=== PATIENT | female | born 1970 | race African-American/Black ===

== ENCOUNTER 2016-10-06 08:12 | Emergency (ER) | payer OTHER ==
[2016-10-06 08:07] LABS: INFLUENZA A NEG (NEG); INFLUENZA B NEG (NEG)
[~2016-10-06 08:12] MED LIST: DIFLUCAN PO; FLAGYL PO
== END 2016-10-06 08:27 | disposition home or self-care (01) ==
LOC: CED 08:12
PROVIDERS: Nurse Practitioner Family
DX: J02.9 Acute pharyngitis, unspecified (principal); Z91.030 Bee allergy status
CPT/HCPCS: 87651; 87804; 99282; 99283